=== PATIENT | female | born 1960 | race African-American/Black ===

== ENCOUNTER 2016-11-24 17:17 | Emergency (ER) | payer MEDICAID, OTHER ==
[~2016-11-24] VITALS: Ht 165.1 cm; Wt 70.0 kg
[~2016-11-24 17:17] MED LIST: AMLO5TAB2 PO; BLOOD GLUCOSE M1 KIT; BLOOD GLUCOSE T1 TES; FLUT1SPR9; FLUT50SP EACH NARE; GABA300C3 PO; GLIP10TA6 PO; GLIP5 PO; IBUP800T23 PO; LANCETS1 MI1; LISI-357 PO; LISI-519 PO; METH500T3 PO; NORV5TAB PO; RANI150 PO; RANI150T PO; SERT-132 PO
[2016-11-24 17:18] VITALS: BP 120/80; PULSE 86; RESP 20; TEMP 98.7; O2SAT 100
[2016-11-24] MEDS ORDERED: GABA300C5 PO (17:40)
[2016-11-24 18:14] LABS: BLOOD, URINE NEG (NEG); COMMENT (UR) CULT NOT INDICATED; CULTURE IF INDICATED CULT NOT INDICATED; GLUCOSE,URINE 1000 mg/dL (NEG); KETONE, URINE NEG (NEG); NITRITE,URINE NEG (NEG); PH, URINE 5.5 (5.0-8.5); SQUAMOUS EPITHELIAL CELL URINE <1 /hpf (0-5); URINE COLOR LIGHT-YELLOW (YELLW/STRAW)
[2016-11-24] MEDS ORDERED: DIFL100T PO (18:16)
[2016-11-24] MEDS ORDERED: LOTR1CRE TOPICAL (18:16)
--- NOTE | 2016-11-24 18:16 | PD ---
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 Patient states that the symptoms started 2 days ago. Patient denies any headache. Patient denies any chest pain or shortness of breath. Patient denies abdominal pain. Patient denies any back pain. Patient denies any vaginal discharge or bleeding. Patient denies any dysuria. Patient denies any fever chills. PFSH Past Medical History Cancer: No Cardiovascular Problems: Yes (HTN) Diabetes: Yes Patient Takes Glucophage: Yes Diminished Hearing: No Endocrine: No Gastrointestinal Disorders: Yes Genitourinary: No Hypertension: Yes Immune Disorder: No Musculoskeletal: No Neurologic: No Psychiatric: No Reproductive: No Respiratory: No Pancreatitis: Yes Influenza Vaccination: No ?: Not : 2 Para: 2 Ectopic : Yes (WITH TUBE REMOVED) Past Surgical History Abdominal Surgery: Yes (BOWEL OBSTRUCTION; PANCREATIC CYST REMOVED) Cholecystectomy: Yes Pacemaker: No Other Surgery: Yes (choly tube removed bowel surgery in 2002) Social History Alcohol Use: Yes ( pk 03/26/13) Tobacco Use: No (PT DENIES) Substance Use: No Allergies-Medications (Allergen,Severity, Reaction): Coded Allergies: Penicillin (Verified Allergy, Mild, RASH, 11/24/16) Reported Meds & Prescriptions Reported Meds & Active Scripts Active Lotrimin AF Topical (Clotrimazole) 1% Cream 1 Applic TOPICAL BID Diflucan (Fluconazole) 100 Mg Tab 100 Mg PO DAILY Ranitidine (Ranitidine HCl) 150 Mg Tab 150 Mg PO BID Lisinopril 5 Mg Tab 5 Mg PO DAILY Fluticasone Nasal [place] 50 Mcg/Act Naspr 100 Mcg EACH NARE DAILY 50 mcg/spray Amlodipine (Amlodipine Besylate) 5 Mg Tab 5 Mg PO DAILY Glipizide 10 Mg Tab 10 Mg PO DAILY Take 30 minutes before a meal Blood Glucose Test Strips 1 Natalee Natalee 1 Ea .ROUTE DIRECTED Lancets 1 Mis Mis 1 Ea .ROUTE DIRECTED Blood Glucose Monitoring W/Device (Device) 1 Kit Kit 1 Kit .ROUTE DIRECTED Flonase Allergy Relief Ch (Fluticasone Propionate (Nasal)) 50 Mcg/Act Spr 2 [place] NA DAILY Zantac 150 Mg Tab (Ranitidine HCl) 150 Mg Tab 150 Mg PO BID Lisinopril 5 mg (Lisinopril) 5 Mg Tab 5 Mg PO DAILY Methocarbamol 500 Mg Tab 500 Mg PO QID PRN Ibuprofen 800 Mg Tab 800 Mg PO Q6H PRN Norvasc (Amlodipine Besylate) 5 Mg Tab 5 Mg PO DAILY Glipizide 5 Mg Tab 5 Mg PO DAILY Reported Gabapentin 300 Mg Cap 300 Mg PO HS Review of Systems General / Constitutional: No: Fever Eyes: No: Visual changes HENT: No: Headaches Cardiovascular: No: Chest Pain or Discomfort Respiratory: No: Shortness of Breath Gastrointestinal: No: Abdominal Pain Genitourinary: Positive: Frequency, No: Dysuria Musculoskeletal: No: Pain Skin: No Rash Neurologic: No: Weakness Psychiatric: No: Depression Endocrine: No: Polydipsia Hematologic/Lymphatic: No: Easy Bruising Physical Exam Narrative GENERAL: Well-nourished, well-developed patient. SKIN: Focused skin assessment warm/dry. HEAD: Normocephalic. EYES: No scleral icterus. No injection or drainage. NECK: Supple, trachea midline. No JVD or lymphadenopathy. CARDIOVASCULAR: Regular rate and rhythm without murmurs, gallops, or rubs. RESPIRATORY: Breath sounds equal bilaterally. No accessory muscle use. GASTROINTESTINAL: Abdomen soft, non-tender, nondistended. MUSCULOSKELETAL: No cyanosis, or edema. BACK: Nontender without obvious deformity. No CVA tenderness. PNEUMATIC PRESS HAND exam: Patient has moist whitish rash bilateral inguinal area and vaginal area. No tenderness on palpation. No heat no induration noted. Data Data Last Documented VS Vital Signs Date Time Temp Pulse Resp B/P Pulse Ox O2 Delivery O2 Flow Rate FiO2 11/24/16 17:18 98.7 86 20 120/80 100 Room Air Orders Urinalysis - C+S If Indicated (11/24/16 17:47) Labs Laboratory Tests Test 11/24/16 17:50 Urine Color LIGHT-YELLOW Urine Turbidity CLEAR Urine pH 5.5 Urine Specific [place] 1.030 Urine Protein NEG mg/dL Urine Glucose (UA) 1000 mg/dL Urine Ketones NEG mg/dL Urine Occult Blood NEG Urine Nitrite NEG Urine Bilirubin NEG Urine Urobilinogen LESS THAN 2.0 MG/DL Urine Leukocyte Esterase SMALL Urine RBC 1 /hpf Urine WBC 4 /hpf Urine Squamous Epithelial <1 /hpf Cells Microscopic Urinalysis Comment CULT NOT INDICATED MDM Medical Decision Making Medical Screen Exam Complete: Yes Emergency Medical Condition: Yes Interpretation(s) 1817 p.m. UA is negative. Differential Diagnosis Differential diagnosis including tinea cruris, karime vaginitis, cellulitis, abscess. Narrative Course 56-year-old female with itchy rash in the groin and vaginal area. Diagnosis Primary Impression: Karime vaginitis Additional Impression: Tinea cruris Patient Instructions: General Instructions Additional Instructions: Take medications as directed. Follow-up with local physician. Return if persistent problem or worse. Med/Other Pt SpecificInfo: Prescription(s) given Scripts Clotrimazole Topical (Lotrimin AF Topical)1% Cream1 Applic TOPICAL BID #60 GM Ref 0 Prov:Rubén Blue MD 11/24/16 Fluconazole (Diflucan)100 Mg Bdf560 Mg PO DAILY #3 TAB Ref 0 Prov:Rubén Blue MD 11/24/16 Disposition: 01 DISCHARGE HOME Condition: Stable Rubén Blue MD Nov 24, 2016 18:16
[2016-12-17] MEDS ORDERED: TRAZ100T6 PO (09:13)
[2016-12-17] MEDS ORDERED: LURA40 PO (09:13)
[2016-12-17] MEDS ORDERED: SERT-132 PO (09:13)
[2016-12-17] MEDS ORDERED: BLOOD GLUCOSE M1 KIT (10:02)
== END 2016-11-24 18:42 | disposition home or self-care (01) ==
LOC: NEPD 17:17
DX: B37.3 Candidiasis of vulva and vagina (principal); B35.6 Tinea cruris; I10 Essential (primary) hypertension; Z88.0 Allergy status to penicillin
CPT/HCPCS: 81001; 99283

== ENCOUNTER 2016-12-01 15:20 | Emergency (ER) | payer MEDICAID ==
[~2016-12-01] VITALS: Ht 165.1 cm; Wt 70.0 kg
[~2016-12-01 15:20] MED LIST changes: +DIFL100T PO; -GABA300C3 PO; +GABA300C5 PO; +LOTR1CRE TOPICAL; -SERT-132 PO
[2016-12-01 15:22] VITALS: BP 125/76; PULSE 89; RESP 16; TEMP 98.9; O2SAT 99
[2016-12-01] MEDS ORDERED: SODIUM CHLOR 0.9% 1000 ML INJ 1,000 ML IV ONE (15:38)
[2016-12-01] MEDS ORDERED: SODIUM CHLORIDE 0.9% FLUSH 10 ML FLUSH IVF PRN (15:45)
--- NOTE | 2016-12-01 15:48 | PD ---
HPI Chief Complaint: Abnormal Results Time Seen by Provider: 15:46 Travel History International Travel<30 days: No Contact w/Intl Traveler<30days: No Traveled to known affect area: No History of Present Illness HPI 56-year-old female with history of diabetes, hypertension, presents to the ER today because she was at a health fair today and was told that her blood sugar was elevated and that her blood pressure was also up. She was told that she needs to be evaluated for both issues in the ER. Patient denies any chest pains , shortness of breath, or any other symptoms. She does note that she has been urinating a lot. Modifying Factors: None Associated Signs & Symptoms: High blood sugar and high blood pressure Risk Factors: History of diabetes and hypertension PFSH Past Medical History Cancer: No Cardiovascular Problems: Yes (HTN) Diabetes: Yes (TYPE II GLIPIZIDE 10MG DAILY TOOK THIS AM ) Patient Takes Glucophage: No Diminished Hearing: No Endocrine: No Gastrointestinal Disorders: Yes Genitourinary: No Hypertension: Yes Immune Disorder: No Musculoskeletal: No Neurologic: No Psychiatric: No Reproductive: No Respiratory: No Pancreatitis: Yes ?: Not : 2 Para: 2 Ectopic : Yes (WITH TUBE REMOVED) Past Surgical History Abdominal Surgery: Yes (BOWEL OBSTRUCTION; PANCREATIC CYST REMOVED) Cholecystectomy: Yes Pacemaker: No Other Surgery: Yes (choly tube removed bowel surgery in 2002) Social History Alcohol Use: No Tobacco Use: No Substance Use: No Allergies-Medications (Allergen,Severity, Reaction): Coded Allergies: Penicillin (Verified Allergy, Mild, RASH, 12/01/16) Reported Meds & Prescriptions Reported Meds & Active Scripts Active Lotrimin AF Topical (Clotrimazole) 1% Cream 1 Applic TOPICAL BID Diflucan (Fluconazole) 100 Mg Tab 100 Mg PO DAILY Ranitidine (Ranitidine HCl) 150 Mg Tab 150 Mg PO BID Lisinopril 5 Mg Tab 5 Mg PO DAILY Fluticasone Nasal [place] 50 Mcg/Act Naspr 100 Mcg EACH NARE DAILY 50 mcg/spray Amlodipine (Amlodipine Besylate) 5 Mg Tab 5 Mg PO DAILY Glipizide 10 Mg Tab 10 Mg PO DAILY Take 30 minutes before a meal Blood Glucose Test Strips 1 Natalee Natalee 1 Ea .ROUTE DIRECTED Lancets 1 Mis Mis 1 Ea .ROUTE DIRECTED Blood Glucose Monitoring W/Device (Device) 1 Kit Kit 1 Kit .ROUTE DIRECTED Flonase Allergy Relief Ch (Fluticasone Propionate (Nasal)) 50 Mcg/Act Spr 2 [place] NA DAILY Zantac 150 Mg Tab (Ranitidine HCl) 150 Mg Tab 150 Mg PO BID Lisinopril 5 mg (Lisinopril) 5 Mg Tab 5 Mg PO DAILY Methocarbamol 500 Mg Tab 500 Mg PO QID PRN Ibuprofen 800 Mg Tab 800 Mg PO Q6H PRN Norvasc (Amlodipine Besylate) 5 Mg Tab 5 Mg PO DAILY Glipizide 5 Mg Tab 5 Mg PO DAILY Reported Gabapentin 300 Mg Cap 300 Mg PO HS Review of Systems Except as stated in HPI: all other systems reviewed are Neg Physical Exam Narrative GENERAL: Well-developed middle age female patient currently not acute distress. Awake and oriented 3. SKIN: Focused skin assessment warm/dry. HEAD: Atraumatic. Normocephalic. EYES: Pupils equal and round. No scleral icterus. No injection or drainage. ENT: No nasal bleeding or discharge. Mucous membranes pink and moist. NECK: Trachea midline. No JVD. CARDIOVASCULAR: Regular rate and rhythm. No murmur appreciated. RESPIRATORY: No accessory muscle use. Clear to auscultation. Breath sounds equal bilaterally. GASTROINTESTINAL: Abdomen soft, non-tender, nondistended. Hepatic and splenic margins not palpable. MUSCULOSKELETAL: No obvious deformities. No clubbing. No cyanosis. No edema. NEUROLOGICAL: Awake and alert. No obvious cranial nerve deficits. Motor grossly within normal limits. Normal speech. PSYCHIATRIC: Appropriate mood and affect; insight and judgment normal. Data Data Last Documented VS Vital Signs Date Time Temp Pulse Resp B/P Pulse Ox O2 Delivery O2 Flow Rate FiO2 12/01/16 17:00 60 18 114/66 97 Room Air 12/01/16 15:22 98.9 Orders Electrocardiogram (12/01/16 15:38) Complete Blood Count With Diff (12/01/16 15:38) Comprehensive Metabolic Panel (12/01/16 15:38) Beta Hydroxybutyrate (Acetone) (12/01/16 15:38) Ecg Monitoring (12/01/16 15:38) Iv Access Insert/Monitor (12/01/16 15:38) Oximetry (12/01/16 15:38) Sodium Chloride 0.9% Flush (Ns Flush) (12/01/16 15:45) Sodium Chlor 0.9% 1000 Ml Inj (Ns 1000 M (12/01/16 15:38) Urinalysis - C+S If Indicated (12/01/16 15:46) Insulin Human Regular Inj (Novolin R Inj (12/01/16 17:15) Labs Laboratory Tests Test 12/01/16 12/01/16 15:50 15:57 Urine Color LIGHT-YELLOW Urine Turbidity CLEAR Urine pH 5.0 Urine Specific [place] 1.030 Urine Protein NEG mg/dL Urine Glucose (UA) 1000 mg/dL Urine Ketones NEG mg/dL Urine Occult Blood NEG Urine Nitrite NEG Urine Bilirubin NEG Urine Urobilinogen LESS THAN 2.0 MG/DL Urine Leukocyte Esterase NEG Urine RBC 1 /hpf Urine WBC 3 /hpf Urine Squamous Epithelial 3 /hpf Cells Urine Bacteria OCC /hpf Microscopic Urinalysis Comment CULT NOT INDICATED White Blood Count 7.3 TH/MM3 Red Blood Count 4.26 MIL/MM3 Hemoglobin 10.8 GM/DL Hematocrit 34.6 % Mean Corpuscular Volume 81.3 FL Mean Corpuscular Hemoglobin 25.3 PG Mean Corpuscular Hemoglobin 31.1 % Concent Red Cell Distribution Width 14.4 % Platelet Count 258 TH/MM3 Mean Platelet Volume 10.7 FL Neutrophils (%) (Auto) 62.2 % Lymphocytes (%) (Auto) 28.0 % Monocytes (%) (Auto) 7.5 % Eosinophils (%) (Auto) 1.7 % Basophils (%) (Auto) 0.6 % Neutrophils # (Auto) 4.5 TH/MM3 Lymphocytes # (Auto) 2.0 TH/MM3 Monocytes # (Auto) 0.5 TH/MM3 Eosinophils # (Auto) 0.1 TH/MM3 Basophils # (Auto) 0.0 TH/MM3 CBC Comment DIFF FINAL Differential Comment Sodium Level 131 MEQ/L Potassium Level 3.8 MEQ/L Chloride Level 97 MEQ/L Carbon Dioxide Level 26.1 MEQ/L Anion Gap 8 MEQ/L Blood Urea Nitrogen 11 MG/DL Creatinine 1.06 MG/DL Estimat Glomerular Filtration 65 ML/MIN Rate Random Glucose 670 MG/DL Calcium Level 9.1 MG/DL Total Bilirubin 0.4 MG/DL Aspartate Amino Transf 29 U/L (AST/SGOT) Alanine Aminotransferase 48 U/L (ALT/SGPT) Alkaline Phosphatase 208 U/L Total Protein 7.1 GM/DL Albumin 3.5 GM/DL B-Hydroxybutyrate 0.11 MMOL/L MDM Medical Decision Making Medical Screen Exam Complete: Yes Emergency Medical Condition: Yes Medical Record Reviewed: Yes Interpretation(s) EKG shows NSR, no ST elevation or depression, and no arrhythmias. No significant T-wave inversions. Laboratory Tests Test 12/01/16 12/01/16 15:50 15:57 Urine Glucose (UA) 1000 mg/dL (NEG) Urine Bacteria OCC /hpf (NONE) Hemoglobin 10.8 GM/DL (11.6-15.3) Hematocrit 34.6 % (35.0-46.0) Mean Corpuscular Hemoglobin 25.3 PG (27.0-34.0) Mean Corpuscular Hemoglobin 31.1 % Concent (32.0-36.0) Sodium Level 131 MEQ/L (136-145) Chloride Level 97 MEQ/L (98-107) Creatinine 1.06 MG/DL (0.50-1.00) Estimat Glomerular Filtration 65 ML/MIN (>89) Rate Random Glucose 670 MG/DL (74-106) Alkaline Phosphatase 208 U/L (45-117) Differential Diagnosis Hyperglycemia versus DKA versus other metabolic issues versus hypertensive urgency versus chronic hypertension Narrative Course EKG did not show any signs of ST changes. Patient is not having chest pains or shortness of breath at this time. Her blood pressure is not significantly elevated. This is more of a chronic issue at this point. Her lab work does show significant hyperglycemia. Patient was given IV fluids and insulin in the ER with good response. At this point, she is on by mouth diabetes medications. However, she may need further tailoring of her blood sugar medications. She has been encouraged to follow-up with primary care physician this week. Return for any worsening in symptoms as needed. The plan has been discussed with her and she states understanding. Diagnosis Primary Impression: Hyperglycemia Additional Impression: Chronic hypertension Disposition: 01 DISCHARGE HOME Condition: Stable Nitish Santiago MD Dec 01, 2016 15:48
[2016-12-01 16:34] VITALS: O2SAT 98
[2016-12-01 16:40] LABS: AUTOMATED NEUTROPHIL # 4.5 TH/MM3 (1.8-7.7); BASOPHIL % 0.6 % (0.0-2.0); EOSINOPHIL # 0.1 TH/MM3 (0-0.4); EOSINOPHIL % 1.7 % (0.0-4.0); HEMATOCRIT 34.6 % (35.0-46.0); HEMO FLAGS DIFF FINAL; MEAN CELL VOLUME 81.3 FL (80.0-100.0); MEAN CORPUSCULAR HEMOGLOBIN 25.3 PG (27.0-34.0); MEAN CORPUSCULAR HGB CONC 31.1 % (32.0-36.0); MONO % 7.5 % (0.0-8.0); NEUT % 62.2 % (16.0-70.0); PLATELET COUNT 258 TH/MM3 (150-450); RED BLOOD COUNT 4.26 MIL/MM3 (4.00-5.30); RED CELL DISTRIBUTION WIDTH 14.4 % (11.6-17.2); WHITE BLOOD COUNT 7.3 TH/MM3 (4.0-11.0)
[2016-12-01 16:51] LABS: BACTERIA, URINE OCC /hpf; BLOOD, URINE NEG (NEG); COMMENT (UR) CULT NOT INDICATED; CULTURE IF INDICATED CULT NOT INDICATED; GLUCOSE,URINE 1000 mg/dL (NEG); KETONE, URINE NEG (NEG); NITRITE,URINE NEG (NEG); SQUAMOUS EPITHELIAL CELL URINE 3 /hpf (0-5); URINE COLOR LIGHT-YELLOW (YELLW/STRAW)
[2016-12-01 17:00] VITALS: BP 114/66; PULSE 60; RESP 18; O2SAT 97
[2016-12-01 17:03] LABS: ANION GAP 8 MEQ/L (5-15)
[2016-12-01 17:08] LABS: ALKALINE PHOSPHATASE 208 U/L (45-117); ALT (GPT) 48 U/L (10-53); AST (GOT) 29 U/L (15-37); BETA-HYDROXYBUTYRATE 0.11 MMOL/L (0.00-0.39); BICARBONATE 26.1 MEQ/L (21.0-32.0); BLOOD UREA NITROGEN 11 MG/DL (7-18); CHLORIDE 97 MEQ/L (98-107); GLOMERULAR FILTRATION RATE 65 ML/MIN (>89); POTASSIUM 3.8 MEQ/L (3.5-5.1); SODIUM (NA) 131 MEQ/L (136-145); TOTAL BILIRUBIN ADULT 0.4 MG/DL (0.2-1.0)
[2016-12-01] MEDS ORDERED: INSULIN HUMAN REGULAR 1,000 UNITS/10 ML VIAL IV PUSH ONE (17:15)
--- NOTE | 2016-12-02 12:26 | EKG ---
Date Performed: 12/01/2016 Time Performed: 16:10:00 PTAGE: 56 years EKG: Sinus rhythm NORMAL ECG PREVIOUS TRACING : 11/26/2011 10.59 Compared to prior tracing no significant change DOCTOR: Shubham Ellis Interpretating Date/Time 12/02/2016 12:23:33
[2016-12-17] MEDS ORDERED: SERT-132 PO (09:13)
[2016-12-17] MEDS ORDERED: TRAZ100T6 PO (09:13)
[2016-12-17] MEDS ORDERED: LURA40 PO (09:13)
[2016-12-17] MEDS ORDERED: BLOOD GLUCOSE M1 KIT (10:02)
== END 2016-12-01 18:30 | disposition home or self-care (01) ==
LOC: NEPC 15:20
DX: E11.65 Type 2 diabetes mellitus with hyperglycemia (principal); I10 Essential (primary) hypertension; Z79.84 Long term (current) use of oral hypoglycemic drugs
CPT/HCPCS: 80053; 81001; 82010; 85025; 93005; 96374; 99284; J1815; J7030